=== PATIENT | female | born 1940 | race Caucasian/White ===

== ENCOUNTER 2020-11-02 21:34 | Inpatient (IN) | payer MEDICARE, OTHER ==
[~2020-11-02] VITALS: Ht 157.5 cm; Wt 55.8 kg
--- NOTE | 2020-11-02 21:45 | NUR ---
PT [id number] FROM HOME +SOB +WHEEZING, HX OF ASTHMA. PT PLACED ON MONITOR, O2 GIVEN AND BP BEING RECORDED.
[2020-11-02] MEDS ORDERED: ALBUTEROL FS 2.5 MG/3 ML VIAL.NEB ONE ×2 (21:56→23:21)
--- NOTE | 2020-11-02 21:58 | NUR ---
RT NOTE LATE ENTRY: Pt rec'd on breathing tx mask at 6lpm. Pt showed labored breathing, accessory muscle usage, and lethargy. audible expiratory wheezes heard. pt placed on bipap per md orders on noted settings. Alarms are set and audible. Ambu bag bedside. Will continue to monitor cloesly. Addendum: 11/02/20 at 2234 by ITZEL BAEZA RT Amended: Links added.
[2020-11-02] MEDS ORDERED: ALBUTEROL FS 2.5 MG/3 ML VIAL.NEB NEB ONE (22:00)
[2020-11-02] MEDS ORDERED: methylPREDNISolone SOD SUCC 125 MG/2ML VIAL ONE (22:17)
[2020-11-02] MEDS ORDERED: ALBUTEROL FS 2.5 MG/0.5 ML VIAL.NEB NEB ONE (22:30)
[2020-11-02] MEDS ORDERED: methylPREDNISolone SOD SUCC 125 MG/2ML VIAL IV ONE (22:30)
--- NOTE | 2020-11-02 22:36 | NUR ---
OUTSIDE PLANT TECHNICIAN @ BEDSIDE
--- NOTE | 2020-11-02 22:55 | NUR ---
US AT BEDSIDE.
[2020-11-02 22:57] LABS: BASOPHILS % (AUTO) 0.1 % (0.0-2.0); EOSINOPHILS % (AUTO) 2.5 % (0.0-6.0); HEMATOCRIT 45 % (33-45); HEMOGLOBIN 15.2 g/dL (11.5-14.8); LYMPHOCYTES # (AUTO) 1.7 K/uL (0.8-4.8); LYMPHOCYTES % (AUTO) 20.7 % (20.0-44.0); MEAN CORPUSCULAR HGB CONC 34 g/dl (31.0-36.0); MEAN CORPUSCULAR VOLUME 90 fL (82-100); MONOCYTES # (AUTO) 0.6 K/uL (0.1-1.30); MONOCYTES % (AUTO) 6.6 % (2.0-12.0); NEUTROPHILS # (AUTO) 5.9 K/uL (1.8-8.9); NEUTROPHILS % (AUTO) 70.1 % (43.0-81.0); PLATELET COUNT (AUTO) 137 K/uL (150-450); RED BLOOD CELL COUNT(AUTO) 4.99 MIL/uL (4.0-5.2); WHITE BLOOD COUNT (AUTO) 8.4 K/uL (4.3-11.0)
[2020-11-02 23:31] LABS: CALCIUM, SERUM 8.6 mg/dL (8.5-10.1); CARBON DIOXIDE 28 mmol/L (21-32); CHLORIDE 104 mmol/L (98-107); CREATININE 0.7 mg/dL (0.6-1.3); GLUCOSE 140 mg/dL (74-106); POTASSIUM 3.7 mmol/L (3.5-5.1); SODIUM SERUM 144 mmol/L (136-145); UREA NITROGEN, BLOOD 23 mg/dL (7-18)
[2020-11-02 23:43] LABS: ALANINE AMINOTRANSFERASE 8 U/L (12-78); ALBUMIN 3.7 g/dL (3.4-5.0); ALKALINE PHOSPHATASE 68 U/L (46-116); ASPARTATE AMINOTRANSFERASE 29 U/L (15-37); BILIRUBIN,DIRECT 0.2 mg/dL (0.0-0.2); BILIRUBIN,TOTAL 0.4 mg/dL (0.2-1.0); TOTAL PROTEIN, SERUM 7.1 g/dL (6.4-8.2)
[2020-11-03] MEDS ORDERED: ALBUTEROL FS 2.5 MG/3 ML VIAL.NEB NEB PRN
[2020-11-03] MEDS ORDERED: ONDANSETRON HCL/PF 4 MG/2 ML VIAL IVP PRN
[2020-11-03] MEDS ORDERED: MAG HYDROX/AL HYDROX/SIMETH 30 ML UDC PO PRN
[2020-11-03] MEDS ORDERED: ACETAMINOPHEN 325 MG TABLET PO PRN
[2020-11-03] MEDS ORDERED: Z GUARD REMEDY 2 OZ OINT TP PRN
[2020-11-03] MEDS ORDERED: ZOLPIDEM TARTRATE 5 MG TABLET PO PRN
[2020-11-03] MEDS ORDERED: MAGNESIUM HYDROXIDE 30 ML UDC PO PRN
[2020-11-03 05:46] LABS: BASOPHILS % (AUTO) 0.1 % (0.0-2.0); EOSINOPHILS % (AUTO) 0.2 % (0.0-6.0); HEMATOCRIT 41 % (33-45); HEMOGLOBIN 14.2 g/dL (11.5-14.8); LYMPHOCYTES # (AUTO) 0.3 K/uL (0.8-4.8); LYMPHOCYTES % (AUTO) 5.1 % (20.0-44.0); MEAN CORPUSCULAR HGB CONC 34 g/dl (31.0-36.0); MEAN CORPUSCULAR VOLUME 88 fL (82-100); MONOCYTES # (AUTO) 0.5 K/uL (0.1-1.30); MONOCYTES % (AUTO) 7.1 % (2.0-12.0); NEUTROPHILS # (AUTO) 5.7 K/uL (1.8-8.9); NEUTROPHILS % (AUTO) 87.5 % (43.0-81.0); PLATELET COUNT (AUTO) 138 K/uL (150-450); RED BLOOD CELL COUNT(AUTO) 4.66 MIL/uL (4.0-5.2); WHITE BLOOD COUNT (AUTO) 6.6 K/uL (4.3-11.0)
[2020-11-03 06:04] LABS: ALBUMIN 3.1 g/dL (3.4-5.0); BILIRUBIN,TOTAL 0.7 mg/dL (0.2-1.0); CALCIUM, SERUM 8.2 mg/dL (8.5-10.1); CREATININE 0.8 mg/dL (0.6-1.3); PHOSPHORUS 3.4 mg/dL (2.5-4.9); POTASSIUM 4.4 mmol/L (3.5-5.1); TOTAL PROTEIN, SERUM 6.3 g/dL (6.4-8.2)
[2020-11-03] MEDS ORDERED: PANTOPRAZOLE 40 MG TABLET.DR PO ONE (07:44)
[2020-11-03] MEDS: PANTOPRAZOLE 40 MG TABLET.DR PO SCH (07:46)
--- NOTE | 2020-11-03 08:00 | NUR ---
THE PATIENT IS RECEIVED IN ER BED #8. ALERT AND ORIENTED X2. IN ROOM AIR AND DENIES SOB. RESPIRATION REGULAR AND UNLABORED. DENIES PAIN. ATTACHED TO THE MONITOR. WARM BLANKET PROVIDED FOR COMFORT. WILL CONTINUE TO MONITOR THE PATIENT.
[2020-11-03] MEDS ORDERED: ENOXAPARIN SODIUM 30 MG/0.3 ML DISP.SYRIN ONE (09:43)
[2020-11-03] MEDS ORDERED: HYDROCORTISONE SOD SUCCINATE 100 MG/2 ML VIAL ONE (09:43)
[2020-11-03] MEDS ORDERED: GUAIFENESIN LA 600 MG TABLET.SA PO ONE (09:43)
[2020-11-03] MEDS: GUAIFENESIN LA 600 MG TABLET.SA PO SCH ×2 (09:44→16:35)
[2020-11-03] MEDS: methylPREDNISolone SOD SUCC 40 MG/ML VIAL IV SCH ×2 (09:44→16:34)
[2020-11-03] MEDS: ENOXAPARIN SODIUM 30 MG/0.3 ML DISP.SYRIN SQ SCH (09:46)
--- NOTE | 2020-11-03 09:46 | NUR ---
room 106
[2020-11-03] MEDS ORDERED: AMYL1CAP58 PO (09:48)
[2020-11-03] MEDS ORDERED: MULT-1200 PO (09:48)
[2020-11-03] MEDS ORDERED: FLUO20CA42 PO (09:48)
[2020-11-03] MEDS ORDERED: CHOL100062 PO (09:48)
[2020-11-03] MEDS ORDERED: HYDR-3642 PO (09:48)
[2020-11-03] MEDS ORDERED: CARB1TAB21 PO (09:48)
[2020-11-03] MEDS ORDERED: FLUT1BLS IH (09:48)
[2020-11-03] MEDS ORDERED: ATOR10TA PO (09:48)
[2020-11-03] MEDS ORDERED: VENL75CA62 PO (09:48)
[2020-11-03] MEDS ORDERED: FOLI0.4T6 PO (09:48)
[2020-11-03] MEDS ORDERED: MEMA28CA5 PO (09:48)
[2020-11-03] MEDS ORDERED: SUCR1ORA6 PO (09:48)
[2020-11-03] MEDS ORDERED: NITR1PAT64 TD (09:49)
--- NOTE | 2020-11-03 09:54 | NUR ---
REPORT GIVEN TO NURSE ESPINOSA FROM ICU.
--- NOTE | 2020-11-03 10:16 | NUR ---
THE PATIENT IS TRANSFERED TO ROOM 106 IN STABLE CONDITION AND PER ACLS POLICY.
--- NOTE | 2020-11-03 10:40 | NUR ---
BANQUET SET UP PERSONDEPUTY PROGRAM MANAGER NOTES RECEIVED PATIENT VIA GURNEY. BROUGHT BY JACOB, ED NURSE WITH STABLE VITAL SIGNS. PATIENT IS ALERT AND ORIENTED X 3. NO SOB. NOT IN ANY APPARENT DISTRESS. NO C/O PAIN AT THIS TIME. ORIENTED PATIENT TO UNIT, STAFF AND CALL LIGHT. EXTERNAL TELE MONITOR PLACED ON PATIENT PER MD ORDER. SAFETY MEASURES MAINTAINED WITH BED LOCKED AT LOW POSITION AND SIDE RAILS UP X 2. WILL CONTINUE TO MONITOR PATIENT THROUGHOUT SHIFT.
[2020-11-03 12:21] LABS: THYROID STIMULATING HORMONE 0.482 uIU/mL (0.358-3.74)
[2020-11-03] MEDS: LIPASE/PROTEASE/AMYLASE 1 EACH CAPSULE.DR PO SCH ×2 (12:25→16:34)
[2020-11-03] MEDS: SUCRALFATE 1 G/10 ML UDC PO SCH ×2 (12:25→16:35)
[2020-11-03] MEDS: CARBIDOPA/LEVODOPA 25/100 MG 1 UDTAB PO SCH ×3 (12:25→21:11)
[2020-11-03] MEDS: AZITHROMYCIN 250 MG TABLET PO SCH (12:25)
[2020-11-03] MEDS: MEMANTINE HCL 5 MG TABLET PO SCH (16:34)
[2020-11-03] MEDS: FLUTICASONE/VILANTEROL 1 EACH BLST.W.DEV IH SCH (16:38)
[2020-11-03 16:50] LABS: MAGNESIUM 2.2 mg/dL (1.8-2.4)
--- NOTE | 2020-11-03 17:40 | NUR ---
DETASSELER NOTES PATIENT IS IN BED, RESTING COMFORTABLY. ALL NEEDS MET. NOT IN ANY APPARENT DISTRESS. WILL CONT. TO MONITOR FOR ANY CHANGES.
--- NOTE | 2020-11-03 18:50 | NUR ---
IN FLIGHT REFUELING MANAGER CLOSING NOTES PATIENT IS IN BED, SLEEPING COMFORTABLY. NOT IN APPARENT DISTRESS. NO C/O PAIN AT THIS TIME. ALL NEEDS MET THROUGHOUT SHIFT. KEPT, COMFORTABLE AND CLEAN. SAFETY MEASURES MAINTAINED. WILL ENDORSE CONTINUITY OF CARE TO ONCOMING SHIFT.
--- NOTE | 2020-11-03 19:35 | NUR ---
RN NOTE PT RECEIVED IN BED. CURRENTLY ON ROOM AIR SHOWING NO S/S OF RESP DISTRESS/SOB. PT IS A/OX1-2. PT IS ON TELE MONITOR SHOWING NSR. SKIN INTACT. CARDIAC DIET. IV LINE ON RIGHT FA GAUGE 18 NOTED. IV LINE FLUSHED, PATENT, AND INTACT WITH NO INFILTRATION. ALL SAFETY MEASURES IMPLEMENTED. CALL LIGHT WITHIN REACH. BED ALARM ON. BED LOCKED AND IN LOWEST POSITION. WILL CONTINUE TO MONITOR THROUGHOUT THE SHIFT AND ASSESS FOR ANY CHANGES.
[2020-11-03 20:00] VITALS: BP 141/89
[2020-11-03] MEDS ORDERED: hydrOXYzine 10 MG TABLET PO SCH (22:00)
[2020-11-04] VITALS: BP 125/73
[2020-11-04 04:00] VITALS: BP 136/76
--- NOTE | 2020-11-04 06:45 | NUR ---
RN NOTE NO CHANGES IN PT CONDITION DURING SHIFT. PT IS ON ROOM AIR SHOWING NO S/S OF RESP DISTRESS/SOB. BREATHING EVEN AND UNLABORED. PT IS A/OX1-2. PT ON TELE MONITOR SHOWING NSR. PT IS ABLE TO AMBULATE. SKIN IS INTACT. IV LINE NOTED ON RIGHT FA GAUGE 18. LINE FLUSHED, PATENT, AND INTACT. ALL DUE MEDS GIVEN ORDERED. PT KEPT CLEAN AND COMFORTABLE. ALL SAFETY MEASURES IMPLEMENTED. WILL ENDORSE TO MORNING SHIFT RN FOR MADI.
--- NOTE | 2020-11-04 07:53 | NUR ---
TELE NURSE NOTE UPON MORNING ASSESSMENT PATIENT APPEAR TO BE COMFORTABLE. PATIENT WAS ABLE TO GET UP AND WALK, MADE HER OWN BED AND EATING BREAKFAST ON A CHAIR. PATIENT ASKING TO SPEAK WITH THE DOCTOR REGUARDING DISCHARGE. PATIENT STATE "I WOULD LIKE TO GO HOME TODAY." BED WAS PLACE ON THE LOWEST POSITION WITH 3 RAILS UP.
[2020-11-04 08:00] VITALS: BP 111/83
[2020-11-04] MEDS: GUAIFENESIN LA 600 MG TABLET.SA PO SCH (08:58)
[2020-11-04] MEDS ORDERED: FLUOXETINE HCL 20 MG CAPSULE PO SCH (09:00)
[2020-11-04] MEDS ORDERED: VENLAFAXINE XR 75 MG CAP.SR.24H PO SCH (09:00)
[2020-11-04] MEDS ORDERED: MULTIPLE VIT (LYCOPENE/FA/MV,CA,IRON,MIN/LUT)1 TAB PO SCH (09:00)
[2020-11-04] MEDS ORDERED: NITROGLYCERIN PATCH 0.2 MG/HR PATCH.TD24 TD SCH (09:00)
[2020-11-04] MEDS ORDERED: ATORVASTATIN 10 MG TABLET PO SCH (09:00)
[2020-11-04] MEDS: SUCRALFATE 1 G/10 ML UDC PO SCH ×2 (09:00→12:20)
[2020-11-04] MEDS ORDERED: CHOLECALCIFEROL 1,000 UNIT TABLET (VIT D3) PO SCH (09:00)
[2020-11-04] MEDS ORDERED: FOLIC ACID 1 MG TABLET PO SCH (09:00)
[2020-11-04] MEDS: MEMANTINE HCL 5 MG TABLET PO SCH (09:01)
[2020-11-04] MEDS: LIPASE/PROTEASE/AMYLASE 1 EACH CAPSULE.DR PO SCH ×2 (09:01→12:20)
[2020-11-04] MEDS: PANTOPRAZOLE 40 MG TABLET.DR PO SCH (09:02)
[2020-11-04] MEDS: CARBIDOPA/LEVODOPA 25/100 MG 1 UDTAB PO SCH ×2 (09:02→12:20)
[2020-11-04] MEDS: ENOXAPARIN SODIUM 30 MG/0.3 ML DISP.SYRIN SQ SCH (09:04)
[2020-11-04] MEDS: methylPREDNISolone SOD SUCC 40 MG/ML VIAL IV SCH (09:05)
[2020-11-04] MEDS: FLUTICASONE/VILANTEROL 1 EACH BLST.W.DEV IH SCH (10:08)
--- NOTE | 2020-11-04 10:11 | NUR ---
TELE NURSE NOTE ALL AM MEDICATION GIVEN.
[2020-11-04] MEDS: AZITHROMYCIN 250 MG TABLET PO SCH (11:49)
[2020-11-04 12:00] VITALS: BP 102/63
--- NOTE | 2020-11-04 16:15 | NUR ---
TELE NURSE DISCHARGE NOTE PATIENT WAS STABLE UPON DISCHARGE. ABLE TO UNDERSTAND AND COMPREHEND VERBAL INSTRUCTIONS. IV WAS REMOVED WITH NO ISSUE. PICKED UP BY DIAZ (). Addendum: 11/04/20 at 1622 by DYLAN MORGAN RN ADDENDUM, CARNIFICATION OF THE NAME OF , ROBERT.
[2020-11-05] MEDS ORDERED: NITROGLYCERIN 0.4 MG/HR PATCH.TD24 TD SCH (09:00)
[2020-11-05] MEDS ORDERED: METH4TAB16 PO (14:31)
[2020-11-07] MEDS ORDERED: PRED20TA PO (11:28)
== END 2020-11-04 16:23 | disposition home or self-care (01) | DRG 189 ==
LOC: ER 21:38 → TRANSITION 11-03 00:33 → TELE1 11-03 09:49
PROVIDERS: ADMIT Hospitalist; ATTEND Nurse Practitioner Acute Care
DX: J96.01 Acute respiratory failure with hypoxia (principal); G93.41 Metabolic encephalopathy; J45.901 Unspecified asthma with (acute) exacerbation; J90 Pleural effusion, not elsewhere classified; K86.1 Other chronic pancreatitis; Z20.822 Contact with and (suspected) exposure to COVID-19; Z88.0 Allergy status to penicillin; F32.9 Major depressive disorder, single episode, unspecified; D69.6 Thrombocytopenia, unspecified; K21.9 Gastro-esophageal reflux disease without esophagitis; J20.9 Acute bronchitis, unspecified; J44.9 Chronic obstructive pulmonary disease, unspecified; G20 Parkinson's disease; Z87.891 Personal history of nicotine dependence
CPT/HCPCS: 36415; 71045-TC; 80048-TC; 80053-TC; 80061-TC; 80076-TC; 83605-TC; 83735-TC; 83880; 84100-TC; 84443-TC; 84484-TC; 85025-TC; 85730-TC; 87040-TC; 87081-TC; 94799-TC; C9803; G0378; J1650; J1720; J2920; J2930; U0003

== ENCOUNTER 2020-11-05 13:41 | Inpatient (IN) | payer MEDICARE, OTHER ==
[~2020-11-05] VITALS: Ht 160 cm; Wt 53.5 kg
[2020-11-05] VITALS (8 sets, daily range): BP systolic 104–141; BP diastolic 51–85
[~2020-11-05 13:41] MED LIST: AMYL1CAP58 PO; ATOR10TA PO; CARB1TAB21 PO; CHOL100062 PO; FLUO20CA42 PO; FLUT1BLS IH; FOLI0.4T6 PO; HYDR-3642 PO; MEMA28CA5 PO; MULT-1200 PO; NITR1PAT64 TD; SUCR1ORA6 PO; VENL75CA62 PO
--- NOTE | 2020-11-05 13:41 | NUR ---
PT BIBRA 880 FROM HOME C/O CHEST PAIN AND SOB STARTED TODAY. PT IS AAOX4, NOTED MILD RESPIRATORY DISTRESS, HOOKED TO 02 AT 4LPM VIA NC, HOOKED TO DAIRY TECHNOLOGIST, KEPT RESTED AND COMFORTABLE. WILL CONTINUE TO MONITOR.
--- NOTE | 2020-11-05 13:55 | NUR ---
SEEN AND EXAMINED BY .
--- NOTE | 2020-11-05 14:00 | NUR ---
IV LINE ESTABLISHED BLOOD DRAWN AND SENT TO LAB.
--- NOTE | 2020-11-05 14:04 | NUR ---
BALANCER SCALE AT BEDSIDE FOR XRAY.
[2020-11-05] MEDS ORDERED: ALBUTEROL FS 2.5 MG/3 ML VIAL.NEB ONE (14:10)
[2020-11-05] MEDS ORDERED: methylPREDNISolone SOD SUCC 125 MG/2ML VIAL ONE (14:12)
--- NOTE | 2020-11-05 14:12 | NUR ---
RT AT BEDSIDE FOR BIPAP SET UP.
--- NOTE | 2020-11-05 14:21 | NUR ---
RT Pt observed to be in respiratory distress with low SpO2, pt was was placed on BiPAP with noted settings. Pt is awake and alert. HHN tx given inline with no adverse reactions. BiPAP alarms are set and audible with BVM by bedside. BiPAP is plugged into red outlet. Pt appears to be more comfortable at this time. Addendum: 11/05/20 at 1439 by LATONIA MILLS RT Amended: Links added.
--- NOTE | 2020-11-05 14:27 | NUR ---
PT DA[facility] [phone]
[2020-11-05] MEDS ORDERED: methylPREDNISolone SOD SUCC 125 MG/2ML VIAL IV ONE (14:30)
[2020-11-05] MEDS ORDERED: ALBUTEROL FS 2.5 MG/3 ML VIAL.NEB CONTNEB ONE (14:30)
[2020-11-05] MEDS ORDERED: METH4TAB16 PO (14:31)
[2020-11-05 14:32] LABS: ABG OXYGEN SATURATION 94.8 % (92.0-98.5); ABG PCO2 53.5 mmHg (35.0-45.0); ABG PH 7.336 (7.350-7.450); ABG PO2 80.2 mmHg (75.0-100.0); SITE, ABG Right Radial
[2020-11-05 14:33] LABS: AaDO2 579.3 mmHg; COHb 0.9 % (0.5-1.5); MetHb 0.3 % (0.0-1.5); O2Hb 93.7 % (94.0-97.0); VENT MODE, BG BIPAP 15/5
[2020-11-05 14:41] LABS: BASOPHILS % (AUTO) 0.3 % (0.0-2.0); HEMATOCRIT 45 % (33-45); HEMOGLOBIN 15.3 g/dL (11.5-14.8); LYMPHOCYTES # (AUTO) 3.5 K/uL (0.8-4.8); LYMPHOCYTES % (AUTO) 45.7 % (20.0-44.0); MEAN CORPUSCULAR HGB CONC 34 g/dl (31.0-36.0); MEAN CORPUSCULAR VOLUME 89 fL (82-100); MONOCYTES # (AUTO) 0.5 K/uL (0.1-1.30); MONOCYTES % (AUTO) 6.8 % (2.0-12.0); NEUTROPHILS # (AUTO) 3.3 K/uL (1.8-8.9); NEUTROPHILS % (AUTO) 43.2 % (43.0-81.0); PLATELET COUNT (AUTO) 193 K/uL (150-450); RED BLOOD CELL COUNT(AUTO) 4.99 MIL/uL (4.0-5.2); WHITE BLOOD COUNT (AUTO) 7.6 K/uL (4.3-11.0)
--- NOTE | 2020-11-05 14:48 | NUR ---
MOVE SHEET SUBMITTED AND CALLED FOR ICU BED.
--- NOTE | 2020-11-05 15:11 | NUR ---
GOT BED 258
[2020-11-05 15:23] LABS: CALCIUM, SERUM 8.1 mg/dL (8.5-10.1); CARBON DIOXIDE 30 mmol/L (21-32); CHLORIDE 102 mmol/L (98-107); CREATININE 0.8 mg/dL (0.6-1.3); GLUCOSE 125 mg/dL (74-106); POTASSIUM 3.6 mmol/L (3.5-5.1); SODIUM SERUM 140 mmol/L (136-145); UREA NITROGEN, BLOOD 29 mg/dL (7-18)
[2020-11-05] MEDS ORDERED: MORPHINE SULFATE INJ 2 MG/ML DISP.SYRIN IV PRN (16:00)
[2020-11-05] MEDS ORDERED: ALBUTEROL HALF STRENGTH 1.25 MG/3 ML VIAL.NEB NEB PRN (16:00)
[2020-11-05] MEDS ORDERED: ONDANSETRON HCL/PF 4 MG/2 ML VIAL IVP PRN (16:00)
[2020-11-05] MEDS ORDERED: ZOLPIDEM TARTRATE 5 MG TABLET PO PRN (16:00)
[2020-11-05] MEDS ORDERED: ACETAMINOPHEN 325 MG TABLET PO PRN (16:00)
--- NOTE | 2020-11-05 16:13 | NUR ---
REPORT GIVEN TO SHERYL NICE FOR MADI.
[2020-11-05] MEDS ORDERED: ENOXAPARIN SODIUM 40 MG/0.4 ML DISP.SYRIN SQ ONE (16:16)
[2020-11-05] MEDS: ENOXAPARIN SODIUM 40 MG/0.4 ML DISP.SYRIN SQ SCH (16:19)
--- NOTE | 2020-11-05 17:00 | NUR ---
ICU/RN PT ADMITTED FROM ER ,WITH SOB,RESP FAILURE,ASTHMA EXACERBATION.WAS ON BI-PAP IN ER.ON 5L N/C NOW.SAT O2-95-96%.HR-105-108 BPM.AFEBRILE.V/S STABLE.NO PAIN REPORTED AT THIS TIME.PT HAS IV -HL. AWAKE,ALERT,ORIENTED.RASHES ON BLE AND BUE NOTED.PHOTO TAKEN MD NOTIFIED.WOUND CONSULT ORDERED.PT IS ITCHING .BENADRIL PO ORDERED.
--- NOTE | 2020-11-05 17:03 | NUR ---
RT Pt transferred to ICU 258 and is doing well off BiPAP on 4L nasal cannula with adequate SpO2. No SOB or respiratory distress noted. Addendum: 11/05/20 at 1704 by LATONIA MILLS RT Amended: Links added.
[2020-11-05] MEDS ORDERED: diphenhydrAMINE HCL 25 MG CAPSULE PO PRN (17:30)
[2020-11-05] MEDS ORDERED: diphenhydrAMINE HCL ELIX 25 MG/10 ML UDC PO PRN (17:30)
[2020-11-05] MEDS: LIPASE/PROTEASE/AMYLASE 1 EACH CAPSULE.DR PO SCH (17:48)
[2020-11-05] MEDS: SUCRALFATE 1 G/10 ML UDC PO SCH (17:48)
[2020-11-05] MEDS: CARBIDOPA/LEVODOPA 25/100 MG 1 UDTAB PO SCH ×2 (17:48→21:06)
[2020-11-05] MEDS: MEMANTINE HCL 5 MG TABLET PO SCH (17:48)
--- NOTE | 2020-11-05 18:10 | NUR ---
ICU/RN DUE MEDS ARE GIVEN ORDERED.PT IS RESTING IN THE BED.CONTINUE MONITORING.
[2020-11-05] MEDS: FLUTICASONE/VILANTEROL 1 EACH BLST.W.DEV IH SCH (18:11)
--- NOTE | 2020-11-05 19:44 | NUR ---
RN NOTE PATIENT IN BED WITH HEAD OF BED ELEVATED. PATIENT IS ALERT AND ORIENTED X3-4. ON O2 5L VIA NASAL CANNULA, O2 SAT 98%. NO SIGNS OF SHORTNESS OF BREATH. DENIES ANY PAIN AT THIS TIME. DINNER ARRIVED AT THIS TIME, PATIENT ONLY ABLE TO EAT 20% AND STATED SHE IS FULL. IV ACCESS ON RFA#18 PATENT AND INTACT. BED LOCKED AND IN LOWEST POSITION. CALL LIGHT WITHIN REACH. ALL NEEDS ANTICIPATED.
[2020-11-05] MEDS: methylPREDNISolone SOD SUCC 40 MG/ML VIAL IV SCH (21:06)
[2020-11-05] MEDS: hydrOXYzine 10 MG TABLET PO SCH (21:06)
[2020-11-06] VITALS (15 sets, daily range): BP systolic 114–202; BP diastolic 67–177
[2020-11-06 04:18] LABS: BASOPHILS % (AUTO) 0.1 % (0.0-2.0); EOSINOPHILS % (AUTO) 0.1 % (0.0-6.0); HEMATOCRIT 42 % (33-45); HEMOGLOBIN 14.7 g/dL (11.5-14.8); LYMPHOCYTES # (AUTO) 0.9 K/uL (0.8-4.8); LYMPHOCYTES % (AUTO) 15.4 % (20.0-44.0); MEAN CORPUSCULAR HGB CONC 35 g/dl (31.0-36.0); MEAN CORPUSCULAR VOLUME 89 fL (82-100); MONOCYTES # (AUTO) 0.3 K/uL (0.1-1.30); MONOCYTES % (AUTO) 5.8 % (2.0-12.0); NEUTROPHILS # (AUTO) 4.6 K/uL (1.8-8.9); NEUTROPHILS % (AUTO) 78.6 % (43.0-81.0); PLATELET COUNT (AUTO) 157 K/uL (150-450); RED BLOOD CELL COUNT(AUTO) 4.78 MIL/uL (4.0-5.2); WHITE BLOOD COUNT (AUTO) 5.9 K/uL (4.3-11.0)
[2020-11-06] MEDS: methylPREDNISolone SOD SUCC 40 MG/ML VIAL IV SCH ×3 (04:21→21:13)
[2020-11-06 04:36] LABS: CALCIUM, SERUM 8.3 mg/dL (8.5-10.1); CARBON DIOXIDE 33 mmol/L (21-32); CHLORIDE 103 mmol/L (98-107); CREATININE 0.6 mg/dL (0.6-1.3); GLUCOSE 102 mg/dL (74-106); PHOSPHORUS 4.2 mg/dL (2.5-4.9); POTASSIUM 4.7 mmol/L (3.5-5.1); SODIUM SERUM 143 mmol/L (136-145); UREA NITROGEN, BLOOD 19 mg/dL (7-18)
--- NOTE | 2020-11-06 06:20 | NUR ---
RN NOTE PATIENT RESTING IN BED, ALERT AND ORIENTED X3-4. ON O2 2L VIA NASAL CANNULA, O2 SAT 98%. NO SIGNS OF SHORTNESS OF BREATH. PATIENTS BLOOD PRESSURE REMAINS ELEVATED THIS MORNING. DENIES ANY PAIN AND IS ASYMPTOMATIC. WAITING FOR ANY NEW ORDERS FROM BRENDON ANSARI. IV ACCESS ON RFA#18 PATENT AND INTACT. BED LOCKED AND IN LOWEST POSITION. CALL LIGHT WITHIN REACH. ALL NEEDS ATTENDED PROMPTLY. WILL ENDORSE TO AM SHIFT.
--- NOTE | 2020-11-06 07:30 | NUR ---
CLINICAL INFORMATION SYSTEMS DIRECTOR OPENING NOTES Patient is alert and oriented and received in bed awake. Patient is on room air with saturation of 94%. No c/o pain or discomfort. Righter forearm 18 gauze iv access saline lock. Patient showing sinus rhythm. Patient will be monitored. Call light with in reach. Will continue to monitor. HOB kept elevated.Bed is in lowest and locked position.
--- NOTE | 2020-11-06 08:01 | NUR ---
Patient seen by Dr Zaragoza and ordered to downgrade to tele. Patient's Bp reading mentioned to MD with no new orders. Wound consult done.
[2020-11-06] MEDS: FLUOXETINE HCL 20 MG CAPSULE PO SCH (08:10)
[2020-11-06] MEDS: CARBIDOPA/LEVODOPA 25/100 MG 1 UDTAB PO SCH ×4 (08:10→21:14)
[2020-11-06] MEDS: MEMANTINE HCL 5 MG TABLET PO SCH ×2 (08:10→16:07)
[2020-11-06] MEDS: ATORVASTATIN 10 MG TABLET PO SCH (08:10)
[2020-11-06] MEDS: FOLIC ACID 1 MG TABLET PO SCH (08:10)
[2020-11-06] MEDS: LIPASE/PROTEASE/AMYLASE 1 EACH CAPSULE.DR PO SCH ×3 (08:10→17:02)
[2020-11-06] MEDS: CHOLECALCIFEROL 1,000 UNIT TABLET (VIT D3) PO SCH (08:10)
[2020-11-06] MEDS: VENLAFAXINE XR 75 MG CAP.SR.24H PO SCH (08:10)
[2020-11-06] MEDS: SUCRALFATE 1 G/10 ML UDC PO SCH ×3 (08:10→16:06)
[2020-11-06] MEDS: MULTIPLE VIT (LYCOPENE/FA/MV,CA,IRON,MIN/LUT)1 TAB PO SCH (08:11)
[2020-11-06] MEDS: FLUTICASONE/VILANTEROL 1 EACH BLST.W.DEV IH SCH (08:12)
[2020-11-06] MEDS ORDERED: PANTOPRAZOLE 40 MG VIAL IV SCH (09:00)
--- NOTE | 2020-11-06 09:16 | NUR ---
WOUND CARE CONSULT: PT PRESENTS WITH SOME CIRCULAR RED AREAS ON LEGS, UNKNOWN ETIOLOGY. DEFER TO PMD FOR SKIN CONDITION. WILL SEE PRN.
--- NOTE | 2020-11-06 09:30 | NUR ---
RN NOTES, RECEIVED PATIENT FROM ICU VIA WHEEL CHAIR ACCOMPANIED BY MARGO SAUCEDO, AT ROOM AIR NO SOB/ACUTE DISTRESS NOTED VS 98.2, 81, 18, 96%, 96%, 98/62, WILL CONTINUE TO MONITOR CLOSELY.
--- NOTE | 2020-11-06 09:31 | NUR ---
Patient transferred to [facility] at apprx 0925am in good stable condition. On room air with saturation of 97%. Vitals WNL. Bedside report given to Juliana SAUCEDO and updated to patient's rash on her BLE and to lui HALL.
[2020-11-06] MEDS: ENOXAPARIN SODIUM 40 MG/0.4 ML DISP.SYRIN SQ SCH (16:46)
--- NOTE | 2020-11-06 19:21 | NUR ---
RN NOTES, NO SIGNIFICANT CHANGE IN CONDITION DURING THE SHIFT, REMAINED STABLE AT ROOM AIR, NO SOB/ACUTE DISTRESS NOTED, WILL ENDORSE CONTINUITY OF CARE TO ONCOMING NURSE.
[2020-11-06] MEDS: hydrOXYzine 10 MG TABLET PO SCH (21:14)
[2020-11-07 04:00] VITALS: BP 135/80
[2020-11-07] MEDS: methylPREDNISolone SOD SUCC 40 MG/ML VIAL IV SCH (05:12)
[2020-11-07 07:17] LABS: CALCIUM, SERUM 8.2 mg/dL (8.5-10.1); CREATININE 0.6 mg/dL (0.6-1.3)
--- NOTE | 2020-11-07 07:30 | NUR ---
RN OPENING NOTE Received pt awake and alert, ambulating in room. Pt is anxious and wanting to go home. Encouraged pt to relax in room. Pt is on RA, a/o x3, skin in tact, with R FA 18gauge.
[2020-11-07 08:00] VITALS: BP 136/82
[2020-11-07] MEDS: FLUOXETINE HCL 20 MG CAPSULE PO SCH (08:17)
[2020-11-07] MEDS: ATORVASTATIN 10 MG TABLET PO SCH (08:17)
[2020-11-07] MEDS: LIPASE/PROTEASE/AMYLASE 1 EACH CAPSULE.DR PO SCH (08:17)
[2020-11-07] MEDS: CARBIDOPA/LEVODOPA 25/100 MG 1 UDTAB PO SCH (08:17)
[2020-11-07] MEDS: MEMANTINE HCL 5 MG TABLET PO SCH (08:17)
[2020-11-07] MEDS: VENLAFAXINE XR 75 MG CAP.SR.24H PO SCH (08:17)
[2020-11-07] MEDS: CHOLECALCIFEROL 1,000 UNIT TABLET (VIT D3) PO SCH (08:17)
[2020-11-07] MEDS: SUCRALFATE 1 G/10 ML UDC PO SCH (08:18)
[2020-11-07] MEDS: FOLIC ACID 1 MG TABLET PO SCH (08:18)
[2020-11-07] MEDS: MULTIPLE VIT (LYCOPENE/FA/MV,CA,IRON,MIN/LUT)1 TAB PO SCH (08:18)
--- NOTE | 2020-11-07 08:30 | NUR ---
patient wants to go home, wants patient to be seen by md prior to discharge.moved to room next to station .fall risk precaution observed.
[2020-11-07] MEDS ORDERED: FLUTICASONE/VILANTEROL 1 EACH BLST.W.DEV IH SCH (09:00)
--- NOTE | 2020-11-07 10:59 | NUR ---
SEEN AND EVALUATED BY BRI CHOPRA AND CLEARED FOR DISCHARGE.
[2020-11-07] MEDS ORDERED: PRED20TA PO (11:28)
[2020-11-08] MEDS ORDERED: PANTOPRAZOLE 40 MG TABLET.DR PO SCH (09:00)
== END 2020-11-07 12:50 | disposition home or self-care (01) | DRG 189 ==
LOC: ER 13:48 → ICU 15:46 → MEDSG1 11-06 09:33
PROVIDERS: ADMIT Nurse Practitioner Acute Care; ATTEND Nurse Practitioner Acute Care
PROC: 5A09357 Assistance with Respiratory Ventilation, Less than 24 Consecutive Hours, Continuous Positive Airway Pressure (ICD-10-PCS; principal; 2020-11-05)
DX: J96.01 Acute respiratory failure with hypoxia (principal); J45.901 Unspecified asthma with (acute) exacerbation; K86.1 Other chronic pancreatitis; J96.02 Acute respiratory failure with hypercapnia; J44.9 Chronic obstructive pulmonary disease, unspecified; Z90.710 Acquired absence of both cervix and uterus; D69.6 Thrombocytopenia, unspecified; E78.5 Hyperlipidemia, unspecified; G20 Parkinson's disease; K21.9 Gastro-esophageal reflux disease without esophagitis; F32.9 Major depressive disorder, single episode, unspecified; Z87.891 Personal history of nicotine dependence; Z20.822 Contact with and (suspected) exposure to COVID-19
CPT/HCPCS: 36415; 36600; 71045-TC; 80048-TC; 82803-TC; 83880; 84100-TC; 84484-TC; 85025-TC; 87081-TC; C9113; G0378; J1650; J2920; J2930; Q0163; Q0177